=== PATIENT | female | born 1965 | race Caucasian/White ===

== ENCOUNTER 2024-01-14 06:57 | Day surgery (SDC) | payer BC ==
[2024-01-08 14:02] LABS: Absolute Eosinophils 0.2 K/uL (0-0.5); Absolute Lymphocytes (CBC) 2.5 K/uL (0.7-4.9); Absolute Neutrophil 5.9 K/uL (1.8-8.0); Basophils % 0.4 % (0-1.3); Eosinophils % 1.7 % (0-4.4); Hematocrit 42.4 % (36.0-45.0); Hemoglobin 14.1 g/dL (12.0-15.0); Lymphocytes % 26.3 % (15.3-44.8); MCHC 33.2 g/dL (32.0-36.0); MCV 84.5 fL (80-100); Monocytes % 10.1 % (3.3-12.3); Neutrophils % 61.5 % (41.7-73.7); Platelets 347 thou/uL (152-406); RBC Red Blood Cell Count 5.02 M/uL (3.86-4.86); Red Cell Distribution Width 19.3 % (12.1-15.2)
[2024-01-08 14:13] LABS: Anion Gap 6.2 mEq/L (5.0-15.0); Potassium 4.2 mEq/L (3.5-5.1)
--- NOTE | 2024-01-09 11:34 | EKG ---
Test Date: 2024-01-08 Test Time: 14:38:40 [employer] Laminating Machine Operator: ALIZA MEASUREMENT RESULTS: Intervals: Rate: 72 MN: 138 QRSD: 82 QT: 382 QTc: 418 [place]: P: 20 MN: 138 QRS: 54 T: 60 INTERPRETIVE STATEMENTS: Normal sinus rhythm Normal ECG No previous ECG available for comparison Electronically Signed On 01-09-24 11:31:27 [employer]DRO[employer] HAND by Clovis Russell
[2024-01-14] MEDS ORDERED: Phenylephrine HCl 10 MG/ML 1 ML VIAL ONE (07:13)
[2024-01-14] MEDS ORDERED: LIDOCAINE 4% TOP SOLUTION ONE (07:14)
[2024-01-14] MEDS ORDERED: GLYCOPYRROLATE 0.2 MG/ML SYR ONE (07:15)
[2024-01-14] MEDS ORDERED: LIDOCAINE 1% MPF 30 ML VIAL ONE ×2 (07:23→07:43)
[2024-01-14] MEDS: Ringers Lactate 1,000 ML IV ONE (07:31)
[2024-01-14] MEDS: GLYCOPYRROLATE 0.2 MG/ML SYR IV ONE (07:31)
[2024-01-14] MEDS: LIDOCAINE 4% TOP SOLUTION MM ONE (07:35)
[2024-01-14] MEDS ORDERED: propofoL 200 MG/20 ML VIAL IV ONE (07:43)
[2024-01-14] MEDS: LIDOCAINE 4% TOP SOLUTION TOP ONE (08:10)
[2024-01-14] MEDS: LIDOCAINE 1% MPF 30 ML VIAL SQ ONE ×2 (08:12)
[2024-01-14] MEDS: FENTANYL CITR 100 MCG/2 ML ONE (09:25)
--- NOTE | 2024-01-14 09:54 | RAD REPORT ---
Procedure: Chest Single View HISTORY: Bronchoscopy FINDINGS: A pneumothorax is not visualized status post bronchoscopy.
[2024-01-14 10:25] VITALS: TEMP 97.2
--- NOTE | 2024-01-14 10:59 | RAD REPORT ---
Procedure: Chest Single View HISTORY: Bronchoscopy FINDINGS: Film obtained in expiration. A pneumothorax is not visualized.
--- NOTE | 2024-01-14 12:00 | P.OP ---
Date of Service: 01/14/24 (Bronchoscopy with right upper lobe transbronchial biopsies and BAL) Findings and Operative Technique Patient is 58 years of age asymptomatic admitted with progressive infiltrates in the right upper lobe with some areas of cavitation she denies any symptoms no fever or chills no cough has the reason for bronchoscopy after obtaining informed consent from the patient Patient was premedicated by anesthesia findings normal bronchoscopy normal upper airways normal bronchi normal ana no pus or endobronchial lesions visible throughout the entire respiratory tract. Many transbronchial biopsies from the right upper lobe apicoposterior segment were performed including a BAL Postprocedure patient complained of chest pain to chest x-rays did not show any evidence of pneumothorax he was given some fentanyl
[2024-01-14 12:59] VITALS: BP 120/80; O2SAT 96
--- NOTE | 2024-01-14 17:06 | RAD REPORT ---
EXAM: Fluoroscopy use, Fluoroscopy <1 Hour HISTORY: [facility] MAIN BRONCH UPPER RT LOBE COMPARISON: None FINDINGS: 4 images were sent to PACS, during a fluoroscopically guided bronchoscopy. No radiologist w as involved in protocoling or performance of the study, and no radiologist was present for the duration of the procedure. No interpretation of the saved images will be provided. Total fluoroscopy time: 228.5 seconds. IMPRESSION: Documentation of fluoroscopy use as above.
== END 2024-01-14 11:38 | disposition home or self-care (01) ==
LOC: OR 06:57
PROVIDERS: ATTEND Internal Medicine Sleep Medicine
PROC: 0BBC8ZX Excision of Right Upper Lung Lobe, Via Natural or Artificial Opening Endoscopic, Diagnostic (ICD-10-PCS; principal; 2024-01-14 07:58)
DX: R91.8 Other nonspecific abnormal finding of lung field (principal); J44.9 Chronic obstructive pulmonary disease, unspecified; E78.00 Pure hypercholesterolemia, unspecified; F32.A Depression, unspecified
CPT/HCPCS: 31628; 31624; 93005 ×2; 85025; 80048; 36415; 88108; 88312 ×2; 88305 ×2; 87015; 87206; 87116; 87102; 71045 ×2; 76000; J2704; J2371; J2003 ×3; J3010; J7120